=== PATIENT | male | born 1950 | race Hispanic/Latino ===

== ENCOUNTER 2023-01-03 14:10 | Inpatient (IN) | payer OTHER ==
[2023-01-03 15:04] LABS: #Basophils 0.1 10x3/uL (0.0-0.2); #Monocytes 1.6 10x3/uL (0.0-1.1); #Neutrophils 16.1 10x3/uL (1.5-8.4); %Basophils 0.3 % (0.0-2.0); %Eosinophils 0.1 % (0.0-6.0); %Monocytes 7.8 % (0.0-10.0); %Neutrophils 81.1 % (40.0-75.0); Hematocrit 39.4 % (38.8-50.0); Hemoglobin 13.3 g/dL (13.5-17.5); Mean Corpuscular HGB CONC 33.8 g/dL (32.0-36.0); Mean Corpuscular Hemoglobin 28.7 pg (27.0-33.0); Mean Corpuscular Volume 84.9 fl (81.2-95.1); Platelet Count 206 10x3/uL (150-450); RBC Distribution Width 14.7 % (11.5-14.5); Red Blood Cell (RBC) Count 4.64 10x6/uL (4.32-5.72); White Blood Cell (WBC) Count 19.9 10x3/uL (3.5-10.5)
[2023-01-03 15:08] LABS: ALT (SGPT) 13 U/L (8-55); AST (SGOT) 24 U/L (5-34); Albumin 3.8 g/dL (3.4-4.8); Alkaline Phosphatase 94 U/L (40-110); Anion Gap 17 mmol/L (10-20); BUN (Urea Nitrogen) 12 mg/dL (8.4-25.7); Bilirubin, Total 1.3 mg/dL (0.2-1.2); Calc. Creatinine Clearance 0 mL/min (70-130); Calcium 8.7 mg/dL (7.8-10.44); Carbon Dioxide 21 mmol/L (23-31); Chloride 100 mmol/L (98-107); Estimated GFR 93; Globulin 3.4 g/dL (2.4-3.5); Glucose 211 mg/dL (80-115); Potassium 3.5 mmol/L (3.5-5.1); Protein, Total 7.2 g/dL (5.8-8.1); Sodium 134 mmol/L (136-145)
[2023-01-03 15:12] LABS: SARS-CoV-2 NAA Rapid Test Not Detected (NotDetected)
[2023-01-03 15:14] LABS: Troponin I 0.035 ng/mL (< 0.028)
[2023-01-03 15:22] LABS: Lipase Less than 4 U/L (8-78)
[2023-01-03] MEDS ORDERED: Morphine 4 MG/ML VIAL ONE (15:35)
[2023-01-03] MEDS ORDERED: Ondansetron PF 4 MG/2 ML Vial ONE (15:35)
[2023-01-03 15:45] LABS: Magnesium 1.8 mg/dL (1.6-2.6)
[2023-01-03] MEDS ORDERED: cefTRIAXone (ROCEPHIN) 2 GM VIAL ONE (16:55)
[2023-01-03 17:32] LABS: Bilirubin Neg (Negative); Blood, Urine 25 (Negative); Clarity Clear (Clear); Glucose, Urine (Dipstick) 100 mg/dL (Negative); Ketone, Urine 5 mg/dL (Negative); Leukocyte Negative (Negative); Nitrite Negative (Negative); Protein, Urine (Dipstick) 30 mg/dl (Neg-Trace); Specific Gravity, Urine 1.015 (1.005-1.030)
[2023-01-03 17:42] LABS: CAUTI Indications for Culture Dysuria,urgency,freq; RBC/HPF 0-3 HPF (0-3); Renal Epithelial 0-3 HPF (None Seen); Squamous Epithelial None Seen HPF (0-3); WBC/HPF 0-3 HPF (0-3)
[2023-01-03 17:43] LABS: Bacteria/HPF Rare-Few HPF (None Seen)
[2023-01-03 17:46] LABS: Urine Culture Reflex No No
[2023-01-03] MEDS ORDERED: diphenhydrAMINE 50 MG/ML VIAL ONE (18:18)
[2023-01-03] MEDS ORDERED: Famotidine/PF 20 mg/2ml Vial ONE (18:19)
[2023-01-03] MEDS ORDERED: methylPREDNISolone Sod Succ 40 MG VIAL ONE (18:19)
[2023-01-03 21:54] LABS: Troponin I 0.043 ng/mL (< 0.028)
[2023-01-03] MEDS ORDERED: Aspirin Chewable 81 MG TAB ONE (21:58)
[2023-01-03] MEDS ORDERED: Dextrose 50% Abboject 50 ML SYRINGE SLOW IVP PRN (22:47)
[2023-01-03] MEDS ORDERED: Glucagon 1 MG/ML KIT IM PRN (22:47)
[2023-01-03] MEDS ORDERED: Dextrose 5% in Water 1,000 ML IV PRN (22:47)
[2023-01-03] MEDS ORDERED: HumaLOG 300 UNITS/3 ML VIAL SC PRN (22:47)
[2023-01-03] MEDS ORDERED: Ondansetron ODT 4 MG TAB PO PRN (22:47)
[2023-01-03] MEDS ORDERED: Metoprolol Tartrate 5 MG/5 ML VIAL IVP SCH (23:00)
[2023-01-03] MEDS ORDERED: Nitroglycerin 2% Ointment 1 INCH/1 GM Packet TOP SCH (23:30)
[2023-01-03 23:43] LABS: Magnesium 1.9 mg/dL (1.6-2.6)
[2023-01-03 23:45] VITALS: BMI 36.5
[2023-01-03] MEDS: NS 0.9% w/ 20 MEQ KCL 1,000 ML/1,000 ML BAG IV SCH (23:56)
[2023-01-04 00:48] LABS: Troponin I 0.037 ng/mL (< 0.028)
[2023-01-04 04:15] LABS: Anion Gap 14 mmol/L (10-20); BUN (Urea Nitrogen) 12 mg/dL (8.4-25.7); Calc. Creatinine Clearance 136 mL/min (70-130); Calcium 9.2 mg/dL (7.8-10.44); Carbon Dioxide 22 mmol/L (23-31); Chloride 103 mmol/L (98-107); Estimated GFR 96; Glucose 243 mg/dL (80-115); Potassium 3.6 mmol/L (3.5-5.1); Sodium 135 mmol/L (136-145)
[2023-01-04 04:22] LABS: Hematocrit 40.8 % (38.8-50.0); Hemoglobin 13.7 g/dL (13.5-17.5); Mean Corpuscular HGB CONC 33.6 g/dL (32.0-36.0); Mean Corpuscular Hemoglobin 28.8 pg (27.0-33.0); Mean Corpuscular Volume 85.9 fl (81.2-95.1); Mean Platelet Volume 10.5 fl (7.4-10.4); Platelet Count 210 10x3/uL (150-450); RBC Distribution Width 14.6 % (11.5-14.5); Red Blood Cell (RBC) Count 4.75 10x6/uL (4.32-5.72); White Blood Cell (WBC) Count 14.1 10x3/uL (3.5-10.5)
[2023-01-04 05:41] LABS: MDiff Complete? YES
[2023-01-04] MEDS ORDERED: Dextrose 50% Abboject 50 ML SYRINGE SLOW IVP PRN (05:47)
[2023-01-04] MEDS ORDERED: Dextrose 5% in Water 1,000 ML IV PRN (05:47)
[2023-01-04] MEDS ORDERED: Glucagon 1 MG/ML KIT IM PRN (05:47)
[2023-01-04 05:57] LABS: Band 8 % (5-11); Lymphocytes 8 % (21-51); Monocytes 2 % (0-10); Neutrophil 82 % (42-75); Platelet Adequacy Comment Appears Adequate; RBC Morph Comment Within Normal Limits
[2023-01-04] MEDS: Nitroglycerin 2% Ointment 1 INCH/1 GM Packet TOP SCH ×3 (06:40→22:29)
[2023-01-04] MEDS: Metoprolol Tartrate 5 MG/5 ML VIAL IVP SCH ×2 (06:40→14:46)
[2023-01-04] MEDS: HumaLOG 300 UNITS/3 ML VIAL SC PRN ×4 (06:42→20:40)
[2023-01-04] MEDS ORDERED: FLU VACC QS2023(65UP)/MF59C/PF 60 MCG/0.5 ML SYRINGE IM ONE (09:00)
[2023-01-04] MEDS: NS 0.9% w/ 20 MEQ KCL 1,000 ML/1,000 ML BAG IV SCH ×2 (10:56→20:40)
[2023-01-04] MEDS: Aspirin 300 MG Suppository PR SCH (10:57)
[2023-01-04] MEDS: Lantus 1000 UNITS/10 ML VIAL SC SCH ×2 (11:15→20:41)
[2023-01-04] MEDS ORDERED: fentaNYL 50 mcg/mL 1 mL Vial ONE ×2 (15:18→16:20)
[2023-01-04] MEDS ORDERED: PROPOFOL 20 ML ONE ×2 (15:18→16:01)
[2023-01-04] MEDS ORDERED: Lidocaine 1% PF 5 ML VIAL ONE (15:18)
[2023-01-04] MEDS ORDERED: Rocuronium Bromide 10 MG/ML (10ML VIAL) ONE (15:18)
[2023-01-04] MEDS ORDERED: SUGAMMADEX SODIUM 200 MG/2 ML VIAL ONE (15:29)
[2023-01-04] MEDS ORDERED: Piperacillin/Tazobactam 3.375 GM in Sodium Chloride 0.9% 100 ML IVPB SCH (16:00)
[2023-01-04] MEDS ORDERED: Labetalol HCl 100 MG/20 ML VIAL ONE (16:29)
[2023-01-04] MEDS ORDERED: Bupivacaine HCl 0.5%/Epinephrine 1:200,000/PF 30 ml Vial ONE (16:33)
[2023-01-04] MEDS ORDERED: Ondansetron PF 4 MG/2 ML Vial ONE (16:42)
[2023-01-04] MEDS ORDERED: cefTRIAXone\\ROCEPHIN 2 GM in Sodium Chloride 0.9% 100 ML IVPB SCH (17:00)
[2023-01-04] MEDS ORDERED: Dexamethasone 4 mg/ml Vial ONE (17:05)
[2023-01-04] MEDS ORDERED: Ketorolac Tromethamine 30 MG/ML VIAL ONE (17:05)
[2023-01-04] MEDS ORDERED: Morphine 2 MG/ML VIAL SLOW IVP PRN (18:27)
[2023-01-04] MEDS: Piperacillin/Tazobactam 3.375 GM in Sodium Chloride 0.9% 100 ML IVPB SCH (20:22)
[2023-01-04] MEDS: Morphine 4 MG/ML VIAL SLOW IVP PRN (20:22)
[2023-01-05] MEDS: Morphine 4 MG/ML VIAL SLOW IVP PRN ×3 (00:48→14:49)
[2023-01-05] MEDS: Piperacillin/Tazobactam 3.375 GM in Sodium Chloride 0.9% 100 ML IVPB SCH ×3 (04:02→20:33)
[2023-01-05] MEDS: Nitroglycerin 2% Ointment 1 INCH/1 GM Packet TOP SCH ×3 (06:48→21:20)
[2023-01-05] MEDS: HumaLOG 300 UNITS/3 ML VIAL SC PRN ×2 (06:54→17:40)
[2023-01-05] MEDS ORDERED: Insulin NPH Human Isophane 100 UNITS/ML (10 ML VIAL) SQ SCH ×2 (09:00→21:00)
[2023-01-05] MEDS: Aspirin 300 MG Suppository PR SCH (09:41)
[2023-01-05] MEDS: Isosorbide Mononitrate 60 MG ER.TAB PO SCH (09:41)
[2023-01-05] MEDS: Lantus 1000 UNITS/10 ML VIAL SC SCH ×2 (09:42→20:35)
[2023-01-05] MEDS: Lisinopril 20 MG TAB PO SCH (09:42)
[2023-01-05] MEDS ORDERED: Aspirin 81 mg Enteric Coated Tablet PO SCH (10:00)
[2023-01-05] MEDS: NS 0.9% w/ 20 MEQ KCL 1,000 ML/1,000 ML BAG IV SCH (10:27)
[2023-01-05 11:55] LABS: Anion Gap 12 mmol/L (10-20); BUN (Urea Nitrogen) 17 mg/dL (8.4-25.7); Calc. Creatinine Clearance 134 mL/min (70-130); Calcium 8.9 mg/dL (7.8-10.44); Carbon Dioxide 23 mmol/L (23-31); Chloride 110 mmol/L (98-107); Estimated GFR 96; Glucose 249 mg/dL (80-115); Potassium 4.1 mmol/L (3.5-5.1); Sodium 141 mmol/L (136-145)
[2023-01-05] MEDS: metFORMIN 500 MG TAB PO SCH (17:32)
[2023-01-05] MEDS: Atorvastatin Calcium 10 MG TAB PO SCH (20:32)
[2023-01-05] MEDS: Terazosin HCl 5 MG CAP PO SCH (20:32)
[2023-01-05] MEDS: Latanoprost 0.005% Ophth Soln 2.5 ml Bottle EA EYE SCH (20:37)
[2023-01-05] MEDS ORDERED: Lantus 1000 UNITS/10 ML VIAL SC SCH (21:00)
[2023-01-05] MEDS: Insulin NPH Human Isophane 100 UNITS/ML (10 ML VIAL) SQ SCH (21:04)
[2023-01-06] MEDS: Morphine 4 MG/ML VIAL SLOW IVP PRN ×2 (00:31→04:32)
[2023-01-06] MEDS: NS 0.9% w/ 20 MEQ KCL 1,000 ML/1,000 ML BAG IV SCH ×3 (01:54→18:03)
[2023-01-06] MEDS: Piperacillin/Tazobactam 3.375 GM in Sodium Chloride 0.9% 100 ML IVPB SCH ×3 (04:33→21:12)
[2023-01-06] MEDS: Levothyroxine 150 MCG TAB PO SCH (06:24)
[2023-01-06 08:41] LABS: #Eosinphils 0.1 10x3/uL (0.0-0.5); #Monocytes 0.6 10x3/uL (0.0-1.1); %Basophils 0.6 % (0.0-2.0); %Eosinophils 2.1 % (0.0-6.0); %Lymphocytes 23.2 % (18.0-47.0); %Neutrophils 63.5 % (40.0-75.0); Hematocrit 36.5 % (38.8-50.0); Hemoglobin 11.5 g/dL (13.5-17.5); Mean Corpuscular HGB CONC 31.5 g/dL (32.0-36.0); Mean Platelet Volume 10.2 fl (7.4-10.4); Platelet Count 221 10x3/uL (150-450); RBC Distribution Width 15.7 % (11.5-14.5); White Blood Cell (WBC) Count 6.3 10x3/uL (3.5-10.5)
[2023-01-06 08:42] LABS: ALT (SGPT) 25 U/L (8-55); AST (SGOT) 33 U/L (5-34); Alkaline Phosphatase 78 U/L (40-110); Anion Gap 12 mmol/L (10-20); BUN (Urea Nitrogen) 11 mg/dL (8.4-25.7); Bilirubin, Total 0.5 mg/dL (0.2-1.2); Calc. Creatinine Clearance 151 mL/min (70-130); Calcium 8.2 mg/dL (7.8-10.44); Carbon Dioxide 23 mmol/L (23-31); Chloride 113 mmol/L (98-107); Estimated GFR 99; Globulin 3.3 g/dL (2.4-3.5); Glucose 83 mg/dL (80-115); Potassium 3.8 mmol/L (3.5-5.1); Protein, Total 6.3 g/dL (5.8-8.1); Sodium 144 mmol/L (136-145)
[2023-01-06] MEDS ORDERED: Lantus 1000 UNITS/10 ML VIAL SC SCH (09:00)
[2023-01-06] MEDS: metFORMIN 500 MG TAB PO SCH ×2 (10:01→18:02)
[2023-01-06] MEDS: Isosorbide Mononitrate 60 MG ER.TAB PO SCH (10:02)
[2023-01-06] MEDS: Lisinopril 20 MG TAB PO SCH (10:02)
[2023-01-06] MEDS: Aspirin 81 mg Enteric Coated Tablet PO SCH (10:02)
[2023-01-06] MEDS: Insulin NPH Human Isophane 100 UNITS/ML (10 ML VIAL) SQ SCH ×2 (10:03→21:14)
[2023-01-06] MEDS: Atorvastatin Calcium 10 MG TAB PO SCH (21:13)
[2023-01-06] MEDS: Latanoprost 0.005% Ophth Soln 2.5 ml Bottle EA EYE SCH (21:13)
[2023-01-06] MEDS: Terazosin HCl 5 MG CAP PO SCH (21:14)
[2023-01-06] MEDS: Calcium Carbonate 500 MG ChewTAB PO PRN (21:52)
[2023-01-07] MEDS: NS 0.9% w/ 20 MEQ KCL 1,000 ML/1,000 ML BAG IV SCH ×2 (03:45→14:19)
[2023-01-07] MEDS: Piperacillin/Tazobactam 3.375 GM in Sodium Chloride 0.9% 100 ML IVPB SCH ×3 (03:45→20:28)
[2023-01-07] MEDS: Levothyroxine 150 MCG TAB PO SCH (05:21)
[2023-01-07] MEDS: metFORMIN 500 MG TAB PO SCH ×2 (08:41→17:43)
[2023-01-07] MEDS: Isosorbide Mononitrate 60 MG ER.TAB PO SCH (08:41)
[2023-01-07] MEDS: Aspirin 81 mg Enteric Coated Tablet PO SCH (08:41)
[2023-01-07] MEDS: Lisinopril 20 MG TAB PO SCH (08:41)
[2023-01-07] MEDS: Morphine 4 MG/ML VIAL SLOW IVP PRN (08:46)
[2023-01-07] MEDS: Insulin NPH Human Isophane 100 UNITS/ML (10 ML VIAL) SQ SCH ×2 (08:47→20:31)
[2023-01-07 12:48] LABS: #Eosinphils 0.1 10x3/uL (0.0-0.5); #Monocytes 0.5 10x3/uL (0.0-1.1); #Neutrophils 5.2 10x3/uL (1.5-8.4); %Basophils 0.3 % (0.0-2.0); %Eosinophils 1.8 % (0.0-6.0); %Lymphocytes 16.3 % (18.0-47.0); %Monocytes 6.9 % (0.0-10.0); Hematocrit 33.8 % (38.8-50.0); Hemoglobin 11.1 g/dL (13.5-17.5); Mean Corpuscular HGB CONC 32.8 g/dL (32.0-36.0); Mean Corpuscular Volume 88.3 fl (81.2-95.1); Mean Platelet Volume 10.2 fl (7.4-10.4); Platelet Count 253 10x3/uL (150-450); RBC Distribution Width 15.5 % (11.5-14.5); Red Blood Cell (RBC) Count 3.83 10x6/uL (4.32-5.72); White Blood Cell (WBC) Count 7.1 10x3/uL (3.5-10.5)
[2023-01-07] MEDS: cloNIDine 0.1 MG TAB PO PRN ×2 (14:18→23:27)
[2023-01-07] MEDS ORDERED: Acetaminophen 650 MG/20.3 ML UDCUP PO PRN (16:47)
[2023-01-07] MEDS ORDERED: Acetaminophen 650 MG/20.3 ML UDCUP PO SCH (17:00)
[2023-01-07] MEDS: Atorvastatin Calcium 10 MG TAB PO SCH (20:30)
[2023-01-07] MEDS: Terazosin HCl 5 MG CAP PO SCH (20:30)
[2023-01-07] MEDS: Latanoprost 0.005% Ophth Soln 2.5 ml Bottle EA EYE SCH (20:32)
[2023-01-07] MEDS: Calcium Carbonate 500 MG ChewTAB PO PRN (20:55)
[2023-01-07] MEDS: Ondansetron PF 4 MG/2 ML Vial IVP PRN (23:14)
[2023-01-08] MEDS: Piperacillin/Tazobactam 3.375 GM in Sodium Chloride 0.9% 100 ML IVPB SCH ×3 (05:12→19:59)
[2023-01-08] MEDS: Levothyroxine 150 MCG TAB PO SCH (05:12)
[2023-01-08] MEDS: Lisinopril 20 MG TAB PO SCH (07:59)
[2023-01-08] MEDS: Aspirin 81 mg Enteric Coated Tablet PO SCH (07:59)
[2023-01-08] MEDS: metFORMIN 500 MG TAB PO SCH ×2 (08:00→17:10)
[2023-01-08] MEDS: Ondansetron PF 4 MG/2 ML Vial IVP PRN ×2 (08:00→20:00)
[2023-01-08] MEDS: Isosorbide Mononitrate 60 MG ER.TAB PO SCH (08:00)
[2023-01-08] MEDS: Morphine 4 MG/ML VIAL SLOW IVP PRN ×2 (08:00→22:18)
[2023-01-08] MEDS: Insulin NPH Human Isophane 100 UNITS/ML (10 ML VIAL) SQ SCH ×2 (08:00→21:51)
[2023-01-08] MEDS: NS 0.9% w/ 20 MEQ KCL 1,000 ML/1,000 ML BAG IV SCH ×3 (08:01→18:03)
[2023-01-08] MEDS: cloNIDine 0.1 MG TAB PO PRN (12:36)
[2023-01-08] MEDS: HumaLOG 300 UNITS/3 ML VIAL SC PRN ×3 (12:37→21:52)
[2023-01-08 12:47] LABS: Bilirubin Neg (Negative); Blood, Urine 250 (Negative); Clarity Slightly Cloudy (Clear); Glucose, Urine (Dipstick) Normal (Negative); Ketone, Urine 5 mg/dL (Negative); Leukocyte 500 (Negative); Nitrite Negative (Negative); Protein, Urine (Dipstick) 15 mg/dl (Neg-Trace); Urobilinogen Normal mg/dL (Less than 2); pH, Urine 6.5 (5.0-9.0)
[2023-01-08 13:07] LABS: CAUTI Indications for Culture Dysuria,urgency,freq; RBC/HPF Greater than 50 HPF (0-3); Squamous Epithelial 0-3 HPF (0-3)
[2023-01-08 13:08] LABS: Bacteria/HPF None Seen HPF (None Seen)
[2023-01-08 13:09] LABS: Urine Culture Reflex Yes Yes
[2023-01-08] MEDS: Terazosin HCl 5 MG CAP PO SCH (21:50)
[2023-01-08] MEDS: Latanoprost 0.005% Ophth Soln 2.5 ml Bottle EA EYE SCH (21:51)
[2023-01-08] MEDS: Atorvastatin Calcium 10 MG TAB PO SCH (21:51)
[2023-01-08] MEDS: Calcium Carbonate 500 MG ChewTAB PO PRN (22:02)
[2023-01-09] MEDS: Piperacillin/Tazobactam 3.375 GM in Sodium Chloride 0.9% 100 ML IVPB SCH ×3 (03:50→20:15)
[2023-01-09] MEDS: cloNIDine 0.1 MG TAB PO PRN ×3 (04:55→20:16)
[2023-01-09] MEDS: Levothyroxine 150 MCG TAB PO SCH (05:08)
[2023-01-09 08:04] LABS: Hemoglobin 11.2 g/dL (13.5-17.5); Mean Corpuscular Hemoglobin 28.5 pg (27.0-33.0); Mean Corpuscular Volume 89.1 fl (81.2-95.1); Mean Platelet Volume 11.1 fl (7.4-10.4); Platelet Count 266 10x3/uL (150-450); RBC Distribution Width 15.4 % (11.5-14.5); Red Blood Cell (RBC) Count 3.93 10x6/uL (4.32-5.72); White Blood Cell (WBC) Count 8.4 10x3/uL (3.5-10.5)
[2023-01-09 08:22] LABS: Anion Gap 13 mmol/L (10-20); BUN (Urea Nitrogen) 8 mg/dL (8.4-25.7); Calc. Creatinine Clearance 151 mL/min (70-130); Calcium 8.3 mg/dL (7.8-10.44); Carbon Dioxide 21 mmol/L (23-31); Chloride 109 mmol/L (98-107); Estimated GFR 99; Glucose 112 mg/dL (80-115); Potassium 4.1 mmol/L (3.5-5.1); Sodium 139 mmol/L (136-145)
[2023-01-09] MEDS: Isosorbide Mononitrate 60 MG ER.TAB PO SCH (08:41)
[2023-01-09] MEDS: Amlodipine 5 MG TAB PO SCH (08:41)
[2023-01-09] MEDS: Lisinopril 20 MG TAB PO SCH (08:41)
[2023-01-09] MEDS: Aspirin 81 mg Enteric Coated Tablet PO SCH (08:41)
[2023-01-09] MEDS: metFORMIN 500 MG TAB PO SCH ×2 (08:41→16:58)
[2023-01-09] MEDS: NS 0.9% w/ 20 MEQ KCL 1,000 ML/1,000 ML BAG IV SCH ×2 (08:42→17:06)
[2023-01-09] MEDS: Insulin NPH Human Isophane 100 UNITS/ML (10 ML VIAL) SQ SCH ×2 (08:42→20:16)
[2023-01-09] MEDS: Morphine 4 MG/ML VIAL SLOW IVP PRN (16:58)
[2023-01-09] MEDS: Ondansetron PF 4 MG/2 ML Vial IVP PRN (16:58)
[2023-01-09] MEDS: Terazosin HCl 5 MG CAP PO SCH (20:15)
[2023-01-09] MEDS: Latanoprost 0.005% Ophth Soln 2.5 ml Bottle EA EYE SCH (20:16)
[2023-01-09] MEDS: Atorvastatin Calcium 10 MG TAB PO SCH (20:18)
[2023-01-09] MEDS: HumaLOG 300 UNITS/3 ML VIAL SC PRN (20:18)
[2023-01-09] MEDS: Calcium Carbonate 500 MG ChewTAB PO PRN (20:25)
[2023-01-10] MEDS: Piperacillin/Tazobactam 3.375 GM in Sodium Chloride 0.9% 100 ML IVPB SCH ×2 (03:56→11:25)
[2023-01-10] MEDS: NS 0.9% w/ 20 MEQ KCL 1,000 ML/1,000 ML BAG IV SCH ×2 (03:58→14:41)
[2023-01-10] MEDS: Levothyroxine 150 MCG TAB PO SCH (06:35)
[2023-01-10] MEDS: metFORMIN 500 MG TAB PO SCH ×2 (09:10→18:01)
[2023-01-10] MEDS: Lisinopril 20 MG TAB PO SCH (09:10)
[2023-01-10] MEDS: Aspirin 81 mg Enteric Coated Tablet PO SCH (09:11)
[2023-01-10] MEDS: Amlodipine 5 MG TAB PO SCH (09:11)
[2023-01-10] MEDS: Isosorbide Mononitrate 60 MG ER.TAB PO SCH (09:11)
[2023-01-10] MEDS: Insulin NPH Human Isophane 100 UNITS/ML (10 ML VIAL) SQ SCH ×2 (09:12→21:44)
[2023-01-10] MEDS: Atorvastatin Calcium 10 MG TAB PO SCH (21:43)
[2023-01-10] MEDS: Latanoprost 0.005% Ophth Soln 2.5 ml Bottle EA EYE SCH (21:43)
[2023-01-10] MEDS: Terazosin HCl 5 MG CAP PO SCH (21:43)
[2023-01-10] MEDS: Morphine 4 MG/ML VIAL SLOW IVP PRN (21:44)
[2023-01-11] MEDS: cloNIDine 0.1 MG TAB PO PRN (05:05)
[2023-01-11] MEDS: Levothyroxine 150 MCG TAB PO SCH (05:05)
[2023-01-11] MEDS: Isosorbide Mononitrate 60 MG ER.TAB PO SCH (08:32)
[2023-01-11] MEDS: Lisinopril 20 MG TAB PO SCH (08:32)
[2023-01-11] MEDS: Amlodipine 5 MG TAB PO SCH (08:32)
[2023-01-11] MEDS: Aspirin 81 mg Enteric Coated Tablet PO SCH (08:32)
[2023-01-11] MEDS: metFORMIN 500 MG TAB PO SCH (08:32)
[2023-01-11] MEDS: Insulin NPH Human Isophane 100 UNITS/ML (10 ML VIAL) SQ SCH (08:33)
[2023-01-11 12:48] VITALS: BP 136/66; TEMP 98.6
== END 2023-01-11 16:27 | DRG 417 ==
LOC: CSHERS 14:10 → EEVIPCON 14:10 → CSHTELE 23:39
PROVIDERS: ADMIT Family Medicine; ATTEND Internal Medicine
PROC: 0FT44ZZ Resection of Gallbladder, Percutaneous Endoscopic Approach (ICD-10-PCS; principal; 2023-01-04)
DX: K81.0 Acute cholecystitis (principal); I21.A1 Myocardial infarction type 2; E87.1 Hypo-osmolality and hyponatremia; E03.9 Hypothyroidism, unspecified; E78.5 Hyperlipidemia, unspecified; E11.40 Type 2 diabetes mellitus with diabetic neuropathy, unspecified; I10 Essential (primary) hypertension; I25.10 Atherosclerotic heart disease of native coronary artery without angina pectoris; Z95.5 Presence of coronary angioplasty implant and graft; Z98.890 Other specified postprocedural states; Z90.89 Acquired absence of other organs; Z83.3 Family history of diabetes mellitus; Z79.899 Other long term (current) drug therapy; Z79.890 Hormone replacement therapy; Z91.041 Radiographic dye allergy status; Z79.84 Long term (current) use of oral hypoglycemic drugs; Z79.4 Long term (current) use of insulin; Z86.73 Personal history of transient ischemic attack (TIA), and cerebral infarction without residual deficits; Z20.822 Contact with and (suspected) exposure to COVID-19
CPT/HCPCS: 36415; 36416; 51702; 70450; 71045; 74177; 76705; 80048; 80053; 81001; 83605; 83690; 83735; 84484; 85025; 85027; 87040; 87086; 88304; 90471; 90694; 93005; 93010; 93306; 94760; 94762; 96361; 96365; 96375; C1889; G0008; J0696; J1100; J1200; J1650; J1815; J1885; J2270; J2405; J2543; J2704; J2920; J3010; J3480; J3490; S0028; U0002

== ENCOUNTER 2023-02-26 16:52 | Inpatient (IN) | payer OTHER ==
[2023-02-26 17:09] VITALS: BMI 34.3
[2023-02-26] MEDS ORDERED: Senokot S 8.6-50 MG TAB PO PRN (19:32)
[2023-02-26] MEDS ORDERED: Nitroglycerin 0.4 MG TAB (25 Tab Bottle) SL PRN (19:45)
[2023-02-26 20:22] LABS: Magnesium 1.3 mg/dL (1.6-2.6)
[2023-02-26 20:28] LABS: Troponin I 0.044 ng/mL (< 0.028)
[2023-02-26] MEDS: Terazosin HCl 5 MG CAP PO SCH (21:21)
[2023-02-26] MEDS: carBAMazepine 200 MG TAB PO SCH (21:21)
[2023-02-26] MEDS: Potassium Chloride 20 MEQ TAB PO SCH (21:21)
[2023-02-26] MEDS: Furosemide 20 MG TAB PO SCH (21:22)
[2023-02-26] MEDS: Insulin NPH Human Isophane 100 UNITS/ML (10 ML VIAL) SQ SCH (21:23)
[2023-02-26] MEDS: Latanoprost 0.005% Ophth Soln 2.5 ml Bottle EA EYE SCH (21:34)
[2023-02-26 22:55] LABS: Troponin I 0.048 ng/mL (< 0.028)
[2023-02-27] MEDS: Potassium Chloride 20 MEQ TAB PO SCH ×3 (00:19→21:45)
[2023-02-27] MEDS ORDERED: Magnesium Oxide 400 MG TAB PO SCH ×2 (03:45→09:00)
[2023-02-27 03:59] LABS: #Basophils 0.1 10x3/uL (0.0-0.2); #Eosinphils 0.1 10x3/uL (0.0-0.5); #Monocytes 0.6 10x3/uL (0.0-1.1); #Neutrophils 3.5 10x3/uL (1.5-8.4); %Basophils 1.2 % (0.0-2.0); %Eosinophils 1.7 % (0.0-6.0); %Lymphocytes 27.6 % (18.0-47.0); %Monocytes 9.4 % (0.0-10.0); %Neutrophils 59.8 % (40.0-75.0); Hematocrit 38.9 % (38.8-50.0); Hemoglobin 12.9 g/dL (13.5-17.5); Mean Corpuscular HGB CONC 33.2 g/dL (32.0-36.0); Mean Corpuscular Hemoglobin 28.2 pg (27.0-33.0); Mean Corpuscular Volume 85.1 fl (81.2-95.1); Mean Platelet Volume 9.9 fl (7.4-10.4); Platelet Count 220 10x3/uL (150-450); RBC Distribution Width 15.1 % (11.5-14.5); Red Blood Cell (RBC) Count 4.57 10x6/uL (4.32-5.72); White Blood Cell (WBC) Count 5.9 10x3/uL (3.5-10.5)
[2023-02-27 04:14] LABS: Anion Gap 13 mmol/L (10-20); BUN (Urea Nitrogen) 7 mg/dL (8.4-25.7); Calc. Creatinine Clearance 142 mL/min (70-130); Calcium 8.8 mg/dL (7.8-10.44); Carbon Dioxide 26 mmol/L (23-31); Cardiac Risk 3.2 (Less than 4.5); Chloride 105 mmol/L (98-107); Cholesterol 167 mg/dl (< 200 Desired); Estimated GFR 99; Glucose 134 mg/dL (80-115); HDL Cholesterol 52 mg/dL (>60 Neg Risk); LDL Cholesterol, Calculated 97 mg/dL; Potassium 3.3 mmol/L (3.5-5.1); Sodium 141 mmol/L (136-145); Triglycerides 88 mg/dL (Less than 150)
[2023-02-27] MEDS: Levothyroxine Sodium 100 MCG TAB PO SCH (06:24)
[2023-02-27] MEDS: Isosorbide Mononitrate 60 MG ER.TAB PO SCH (09:16)
[2023-02-27] MEDS: Furosemide 20 MG TAB PO SCH ×2 (09:16→21:42)
[2023-02-27] MEDS: Amlodipine 5 MG TAB PO SCH (09:16)
[2023-02-27] MEDS: Aspirin 81 mg Enteric Coated Tablet PO SCH ×2 (09:16→09:17)
[2023-02-27] MEDS: Lisinopril 20 MG TAB PO SCH (09:16)
[2023-02-27] MEDS: Clopidogrel Bisulfate 75 MG TAB PO SCH (09:17)
[2023-02-27] MEDS: carBAMazepine 200 MG TAB PO SCH ×2 (09:17→21:44)
[2023-02-27] MEDS: Calcium Carbonate 500 MG TAB PO SCH (09:17)
[2023-02-27] MEDS: Insulin NPH Human Isophane 100 UNITS/ML (10 ML VIAL) SQ SCH ×2 (09:18→21:46)
[2023-02-27] MEDS: metFORMIN 500 MG TAB PO SCH ×2 (09:31→16:45)
[2023-02-27] MEDS: Magnesium 2 GM/50 ML(in water) 2 GM in Premix 1 BAG IVPB SCH ×2 (11:09→12:11)
[2023-02-27 11:57] LABS: Bilirubin Neg (Negative); Blood, Urine Negative (Negative); Clarity Clear (Clear); Glucose, Urine (Dipstick) Normal (Negative); Ketone, Urine Negative (Negative); Leukocyte Negative (Negative); Nitrite Negative (Negative); Protein, Urine (Dipstick) Negative (Neg-Trace); Specific Gravity, Urine 1.005 (1.005-1.030); Urobilinogen Normal mg/dL (Less than 2)
[2023-02-27 12:27] LABS: Bacteria/HPF None Seen HPF (None Seen); CAUTI Indications for Culture Pelvic or flank pain; RBC/HPF None Seen HPF (0-3); Squamous Epithelial 0-3 HPF (0-3); WBC/HPF None Seen HPF (0-3)
[2023-02-27 12:28] LABS: Urine Culture Reflex No No
[2023-02-27 12:36] LABS: Hemoglobin A1c 8.2 % (4.0-6.0)
[2023-02-27] MEDS ORDERED: Dextrose 5% in Water 1,000 ML IV PRN (17:30)
[2023-02-27] MEDS ORDERED: Dextrose 50% Abboject 50 ML SYRINGE IVP PRN (17:30)
[2023-02-27] MEDS ORDERED: Glucagon 1 MG/ML KIT IM PRN (17:30)
[2023-02-27] MEDS: Terazosin HCl 5 MG CAP PO SCH (21:44)
[2023-02-27] MEDS: HumaLOG 300 UNITS/3 ML VIAL SC PRN (21:47)
[2023-02-27] MEDS: Latanoprost 0.005% Ophth Soln 2.5 ml Bottle EA EYE SCH (21:48)
[2023-02-28 03:42] LABS: #Eosinphils 0.1 10x3/uL (0.0-0.5); #Monocytes 0.6 10x3/uL (0.0-1.1); #Neutrophils 3.6 10x3/uL (1.5-8.4); %Basophils 0.6 % (0.0-2.0); %Eosinophils 2.3 % (0.0-6.0); %Lymphocytes 28.9 % (18.0-47.0); %Monocytes 9.6 % (0.0-10.0); %Neutrophils 58.4 % (40.0-75.0); Hematocrit 39.6 % (38.8-50.0); Hemoglobin 13.1 g/dL (13.5-17.5); Mean Corpuscular HGB CONC 33.1 g/dL (32.0-36.0); Mean Corpuscular Hemoglobin 28.2 pg (27.0-33.0); Mean Corpuscular Volume 85.2 fl (81.2-95.1); Mean Platelet Volume 9.9 fl (7.4-10.4); Platelet Count 219 10x3/uL (150-450); RBC Distribution Width 15.4 % (11.5-14.5); Red Blood Cell (RBC) Count 4.65 10x6/uL (4.32-5.72); White Blood Cell (WBC) Count 6.2 10x3/uL (3.5-10.5)
[2023-02-28 03:59] LABS: Anion Gap 17 mmol/L (10-20); BUN (Urea Nitrogen) 12 mg/dL (8.4-25.7); Calc. Creatinine Clearance 125 mL/min (70-130); Calcium 9.1 mg/dL (7.8-10.44); Carbon Dioxide 22 mmol/L (23-31); Chloride 103 mmol/L (98-107); Estimated GFR 95; Glucose 100 mg/dL (80-115); Potassium 3.8 mmol/L (3.5-5.1); Sodium 138 mmol/L (136-145)
[2023-02-28] MEDS: Levothyroxine Sodium 100 MCG TAB PO SCH (05:54)
[2023-02-28] MEDS: Furosemide 20 MG TAB PO SCH (09:23)
[2023-02-28] MEDS: Lisinopril 20 MG TAB PO SCH (09:23)
[2023-02-28] MEDS: Amlodipine 5 MG TAB PO SCH (09:23)
[2023-02-28] MEDS: carBAMazepine 200 MG TAB PO SCH (09:23)
[2023-02-28] MEDS: Aspirin 81 mg Enteric Coated Tablet PO SCH ×2 (09:23→09:24)
[2023-02-28] MEDS: Isosorbide Mononitrate 60 MG ER.TAB PO SCH (09:23)
[2023-02-28] MEDS: Clopidogrel Bisulfate 75 MG TAB PO SCH (09:23)
[2023-02-28] MEDS: metFORMIN 500 MG TAB PO SCH ×3 (09:23→17:40)
[2023-02-28] MEDS: Insulin NPH Human Isophane 100 UNITS/ML (10 ML VIAL) SQ SCH (09:24)
[2023-02-28] MEDS: Calcium Carbonate 500 MG TAB PO SCH (09:26)
[2023-02-28] MEDS: HumaLOG 300 UNITS/3 ML VIAL SC PRN (12:22)
[2023-02-28] MEDS: Ondansetron PF 4 MG/2 ML Vial IVP PRN ×2 (12:35→21:09)
[2023-03-01] MEDS ORDERED: carBAMazepine 200 MG TAB PO SCH (00:30)
[2023-03-01] MEDS ORDERED: Terazosin HCl 5 MG CAP PO SCH (00:30)
[2023-03-01] MEDS ORDERED: Latanoprost 0.005% Ophth Soln 2.5 ml Bottle EA EYE SCH (00:30)
[2023-03-01] MEDS ORDERED: Furosemide 20 MG TAB PO SCH (00:30)
[2023-03-01] MEDS: Insulin NPH Human Isophane 100 UNITS/ML (10 ML VIAL) SQ SCH ×3 (01:02→22:29)
[2023-03-01 03:31] LABS: #Monocytes 0.7 10x3/uL (0.0-1.1); #Neutrophils 4.5 10x3/uL (1.5-8.4); %Basophils 0.6 % (0.0-2.0); %Eosinophils 0.6 % (0.0-6.0); %Lymphocytes 22.3 % (18.0-47.0); %Monocytes 9.9 % (0.0-10.0); %Neutrophils 66.5 % (40.0-75.0); Hematocrit 39.4 % (38.8-50.0); Hemoglobin 13.1 g/dL (13.5-17.5); Mean Corpuscular HGB CONC 33.2 g/dL (32.0-36.0); Mean Corpuscular Hemoglobin 28.9 pg (27.0-33.0); Mean Corpuscular Volume 86.8 fl (81.2-95.1); Mean Platelet Volume 10.2 fl (7.4-10.4); Platelet Count 227 10x3/uL (150-450); RBC Distribution Width 15.7 % (11.5-14.5); Red Blood Cell (RBC) Count 4.54 10x6/uL (4.32-5.72); White Blood Cell (WBC) Count 6.7 10x3/uL (3.5-10.5)
[2023-03-01 03:37] LABS: Anion Gap 16 mmol/L (10-20); BUN (Urea Nitrogen) 16 mg/dL (8.4-25.7); Calc. Creatinine Clearance 91 mL/min (70-130); Calcium 9.5 mg/dL (7.8-10.44); Carbon Dioxide 27 mmol/L (23-31); Chloride 102 mmol/L (98-107); Estimated GFR 72; Glucose 201 mg/dL (80-115); Potassium 3.7 mmol/L (3.5-5.1); Sodium 141 mmol/L (136-145)
[2023-03-01] MEDS: Levothyroxine Sodium 100 MCG TAB PO SCH (06:43)
[2023-03-01] MEDS: HumaLOG 300 UNITS/3 ML VIAL SC PRN (06:44)
[2023-03-01] MEDS: Latanoprost 0.005% Ophth Soln 2.5 ml Bottle EA EYE SCH (08:08)
[2023-03-01] MEDS: Terazosin HCl 5 MG CAP PO SCH ×2 (08:08→22:27)
[2023-03-01] MEDS: carBAMazepine 200 MG TAB PO SCH ×3 (08:08→22:28)
[2023-03-01] MEDS: Furosemide 20 MG TAB PO SCH ×3 (08:08→22:28)
[2023-03-01] MEDS: metFORMIN 500 MG TAB PO SCH ×2 (08:23→17:28)
[2023-03-01] MEDS: Isosorbide Mononitrate 60 MG ER.TAB PO SCH (08:24)
[2023-03-01] MEDS: Clopidogrel Bisulfate 75 MG TAB PO SCH (08:24)
[2023-03-01] MEDS: Amlodipine 5 MG TAB PO SCH (08:24)
[2023-03-01] MEDS: Lisinopril 20 MG TAB PO SCH (08:24)
[2023-03-01] MEDS: Calcium Carbonate 500 MG TAB PO SCH (08:24)
[2023-03-01] MEDS: Aspirin 81 mg Enteric Coated Tablet PO SCH ×2 (08:24)
[2023-03-01] MEDS: Ondansetron PF 4 MG/2 ML Vial IVP PRN (08:53)
[2023-03-01] MEDS ORDERED: Prochlorperazine Maleate 10 MG TAB PO PRN (09:06)
[2023-03-01] MEDS ORDERED: Prochlorperazine Edisylate 10 MG, Admixture Fee 1 EACH in Sodium Chloride 0.9% 50 ML IVPB SCH (09:30)
[2023-03-02 04:46] LABS: #Monocytes 0.4 10x3/uL (0.0-1.1); #Neutrophils 5.6 10x3/uL (1.5-8.4); %Basophils 0.3 % (0.0-2.0); %Eosinophils 0.3 % (0.0-6.0); %Lymphocytes 17.6 % (18.0-47.0); %Monocytes 5.7 % (0.0-10.0); %Neutrophils 75.8 % (40.0-75.0); Hematocrit 40.1 % (38.8-50.0); Hemoglobin 13.4 g/dL (13.5-17.5); Mean Corpuscular HGB CONC 33.4 g/dL (32.0-36.0); Mean Corpuscular Volume 86.8 fl (81.2-95.1); Platelet Count 249 10x3/uL (150-450); RBC Distribution Width 15.9 % (11.5-14.5); Red Blood Cell (RBC) Count 4.62 10x6/uL (4.32-5.72); White Blood Cell (WBC) Count 7.3 10x3/uL (3.5-10.5)
[2023-03-02] MEDS: Levothyroxine Sodium 100 MCG TAB PO SCH (06:19)
[2023-03-02] MEDS: Latanoprost 0.005% Ophth Soln 2.5 ml Bottle EA EYE SCH ×2 (06:30→23:56)
[2023-03-02] MEDS: metFORMIN 500 MG TAB PO SCH ×2 (08:00→17:25)
[2023-03-02 08:21] LABS: Anion Gap 22 mmol/L (10-20); BUN (Urea Nitrogen) 22 mg/dL (8.4-25.7); Calc. Creatinine Clearance 86 mL/min (70-130); Carbon Dioxide 23 mmol/L (23-31); Chloride 100 mmol/L (98-107); Estimated GFR 68; Glucose 167 mg/dL (80-115); Potassium 3.8 mmol/L (3.5-5.1); Sodium 141 mmol/L (136-145)
[2023-03-02] MEDS: Insulin NPH Human Isophane 100 UNITS/ML (10 ML VIAL) SQ SCH ×2 (09:24→23:53)
[2023-03-02] MEDS: Lisinopril 20 MG TAB PO SCH (09:37)
[2023-03-02] MEDS: Amlodipine 5 MG TAB PO SCH (09:38)
[2023-03-02] MEDS: Furosemide 20 MG TAB PO SCH ×2 (09:39→23:55)
[2023-03-02] MEDS: Isosorbide Mononitrate 60 MG ER.TAB PO SCH (09:39)
[2023-03-02] MEDS: Aspirin 81 mg Enteric Coated Tablet PO SCH ×2 (09:40)
[2023-03-02] MEDS: Clopidogrel Bisulfate 75 MG TAB PO SCH (09:41)
[2023-03-02] MEDS: carBAMazepine 200 MG TAB PO SCH ×2 (09:41→23:55)
[2023-03-02] MEDS: Calcium Carbonate 500 MG TAB PO SCH (09:54)
[2023-03-02] MEDS ORDERED: Atorvastatin Calcium 40 MG TAB PO SCH (15:30)
[2023-03-02] MEDS: Terazosin HCl 5 MG CAP PO SCH (23:52)
[2023-03-02] MEDS: Atorvastatin Calcium 40 MG TAB PO SCH (23:54)
[2023-03-03 05:35] LABS: #Basophils 0.1 10x3/uL (0.0-0.2); #Eosinphils 0.1 10x3/uL (0.0-0.5); #Neutrophils 6.5 10x3/uL (1.5-8.4); %Basophils 0.6 % (0.0-2.0); %Eosinophils 0.8 % (0.0-6.0); %Lymphocytes 22.9 % (18.0-47.0); %Monocytes 9.8 % (0.0-10.0); %Neutrophils 65.6 % (40.0-75.0); Hematocrit 41.1 % (38.8-50.0); Mean Corpuscular HGB CONC 34.1 g/dL (32.0-36.0); Mean Corpuscular Hemoglobin 29.1 pg (27.0-33.0); Mean Corpuscular Volume 85.4 fl (81.2-95.1); Mean Platelet Volume 10.4 fl (7.4-10.4); Platelet Count 242 10x3/uL (150-450); RBC Distribution Width 15.4 % (11.5-14.5); Red Blood Cell (RBC) Count 4.81 10x6/uL (4.32-5.72)
[2023-03-03 05:52] LABS: Anion Gap 17 mmol/L (10-20); BUN (Urea Nitrogen) 31 mg/dL (8.4-25.7); Calc. Creatinine Clearance 56 mL/min (70-130); Calcium 9.7 mg/dL (7.8-10.44); Carbon Dioxide 29 mmol/L (23-31); Chloride 96 mmol/L (98-107); Estimated GFR 41; Glucose 192 mg/dL (80-115); Potassium 3.3 mmol/L (3.5-5.1); Sodium 139 mmol/L (136-145)
[2023-03-03] MEDS: Levothyroxine Sodium 100 MCG TAB PO SCH (06:13)
[2023-03-03] MEDS: metFORMIN 500 MG TAB PO SCH ×2 (08:32→17:33)
[2023-03-03] MEDS: Lisinopril 20 MG TAB PO SCH (09:00)
[2023-03-03] MEDS: carBAMazepine 200 MG TAB PO SCH ×2 (09:00→21:14)
[2023-03-03] MEDS: Aspirin 81 mg Enteric Coated Tablet PO SCH (09:00)
[2023-03-03] MEDS: Insulin NPH Human Isophane 100 UNITS/ML (10 ML VIAL) SQ SCH ×2 (09:00→21:59)
[2023-03-03] MEDS: Isosorbide Mononitrate 60 MG ER.TAB PO SCH (09:00)
[2023-03-03] MEDS: Amlodipine 5 MG TAB PO SCH (09:00)
[2023-03-03] MEDS: Furosemide 20 MG TAB PO SCH (09:00)
[2023-03-03] MEDS: Calcium Carbonate 500 MG TAB PO SCH (09:00)
[2023-03-03] MEDS: Clopidogrel Bisulfate 75 MG TAB PO SCH (09:00)
[2023-03-03] MEDS ORDERED: Lactated Ringer's 500 ML IV SCH (10:45)
[2023-03-03] MEDS: Lactated Ringer's 1,000 ML IV SCH (10:58)
[2023-03-03] MEDS: Terazosin HCl 5 MG CAP PO SCH (21:14)
[2023-03-03] MEDS: Atorvastatin Calcium 40 MG TAB PO SCH (21:14)
[2023-03-03] MEDS: Latanoprost 0.005% Ophth Soln 2.5 ml Bottle EA EYE SCH (21:58)
[2023-03-04 05:46] LABS: Anion Gap 18 mmol/L (10-20); BUN (Urea Nitrogen) 35 mg/dL (8.4-25.7); Calc. Creatinine Clearance 82 mL/min (70-130); Calcium 9.5 mg/dL (7.8-10.44); Carbon Dioxide 27 mmol/L (23-31); Chloride 98 mmol/L (98-107); Estimated GFR 64; Glucose 172 mg/dL (80-115); Sodium 140 mmol/L (136-145)
[2023-03-04] MEDS: HumaLOG 300 UNITS/3 ML VIAL SC PRN (05:59)
[2023-03-04] MEDS: Levothyroxine Sodium 100 MCG TAB PO SCH (05:59)
[2023-03-04] MEDS: Lactated Ringer's 1,000 ML IV SCH (06:45)
[2023-03-04] MEDS: metFORMIN 500 MG TAB PO SCH ×2 (09:25→17:50)
[2023-03-04] MEDS: Clopidogrel Bisulfate 75 MG TAB PO SCH (09:28)
[2023-03-04] MEDS: Isosorbide Mononitrate 60 MG ER.TAB PO SCH (09:30)
[2023-03-04] MEDS: Aspirin 81 mg Enteric Coated Tablet PO SCH (09:30)
[2023-03-04] MEDS: Amlodipine 5 MG TAB PO SCH (09:30)
[2023-03-04] MEDS: carBAMazepine 200 MG TAB PO SCH (09:31)
[2023-03-04] MEDS: Insulin NPH Human Isophane 100 UNITS/ML (10 ML VIAL) SQ SCH (09:32)
[2023-03-04] MEDS ORDERED: Potassium Chloride 20 MEQ TAB PO SCH (10:45)
[2023-03-04] MEDS: Calcium Carbonate 500 MG TAB PO SCH (17:51)
[2023-03-04 20:41] VITALS: BP 144/81; TEMP 98.8
== END 2023-03-04 22:40 | DRG 69 ==
LOC: CSHTELE 16:52 → INTOOBSV 16:52 → EEVIPCON 16:52 → OBSVTOIN 03-01 09:04 → CSHTELE 03-01 22:25
PROVIDERS: ADMIT Internal Medicine; ATTEND Hospitalist
DX: G45.9 Transient cerebral ischemic attack, unspecified (principal); I21.A1 Myocardial infarction type 2; I69.352 Hemiplegia and hemiparesis following cerebral infarction affecting left dominant side; I42.9 Cardiomyopathy, unspecified; N17.9 Acute kidney failure, unspecified; I10 Essential (primary) hypertension; E11.40 Type 2 diabetes mellitus with diabetic neuropathy, unspecified; I25.10 Atherosclerotic heart disease of native coronary artery without angina pectoris; R33.8 Other retention of urine; R53.1 Weakness; R53.81 Other malaise; K59.00 Constipation, unspecified; N40.1 Benign prostatic hyperplasia with lower urinary tract symptoms; E03.9 Hypothyroidism, unspecified; E78.5 Hyperlipidemia, unspecified; Z88.5 Allergy status to narcotic agent; Z79.899 Other long term (current) drug therapy; Z79.84 Long term (current) use of oral hypoglycemic drugs; Z79.890 Hormone replacement therapy; Z90.49 Acquired absence of other specified parts of digestive tract; Z79.82 Long term (current) use of aspirin; Z90.89 Acquired absence of other organs
CPT/HCPCS: 36415; 36416; 70551; 71045; 74018; 76770; 76775; 80048; 80061; 81001; 82140; 83036; 83735; 84439; 84443; 85025; 93005; 93010; 93880; J0780; J1650; J1815; J2405; J3475; J7120

== ENCOUNTER 2024-12-28 16:25 | Emergency (ER) | payer OTHER ==
[~2024-12-28 16:25] MED LIST: Iopamidol 300 61% 100 ML VIAL FS ONE
[2024-12-28] MEDS ORDERED: diphenhydrAMINE 50 MG/ML VIAL ONE (16:57)
[2024-12-28] MEDS ORDERED: Famotidine/PF 20 mg/2ml Vial ONE (16:58)
[2024-12-28 17:27] LABS: #Basophils 0.05 10x3/uL (0.0-0.2); #Eosinophils 0.21 10x3/uL (0.0-0.5); #Monocytes 0.53 10x3/uL (0.0-1.1); #Neutrophils 4.14 10x3/uL (1.5-8.4); %Basophils 0.7 % (0.0-2.0); %Eosinophils 3.1 % (0.0-6.0); %Lymphocytes 27.0 % (18.0-47.0); %Monocytes 7.8 % (0.0-10.0); %Neutrophils 61.1 % (40.0-75.0); Hematocrit 39.0 % (38.8-50.0); Hemoglobin 13.1 g/dL (13.5-17.5); Mean Corpuscular Hemoglobin 30.8 pg (27.0-33.0); Mean Corpuscular Volume 91.8 fL (81.2-95.1); Platelet Count 221 10x3/uL (150-450); Red Blood Cell (RBC) Count 4.25 10x6/uL (4.32-5.72); White Blood Cell (WBC) Count 6.78 10x3/uL (3.5-10.5)
[2024-12-28 18:00] LABS: ALT (SGPT) 19 U/L (Less than 45); AST (SGOT) 30 U/L (11-34); Albumin 4.1 g/dL (3.1-4.5); Alkaline Phosphatase 85 U/L (40-110); Anion Gap 11 mmol/L (10-20); BUN (Urea Nitrogen) 13 mg/dL (8.4-25.7); Bilirubin, Total 0.6 mg/dL (0.3-1.2); Calc. Creatinine Clearance 0 mL/min (70-130); Calcium 9.5 mg/dL (7.8-10.44); Carbon Dioxide 30 mmol/L (23-31); Chloride 102 mmol/L (98-107); Globulin 3.7 g/dL (2.4-3.5); Glucose 190 mg/dL (83-110); Potassium 3.9 mmol/L (3.5-5.1); Sodium 139 mmol/L (136-145)
== END 2024-12-28 19:23 | disposition home or self-care (01) ==
LOC: EEVIPCON 16:25 → CSHERS 16:25
DX: S16.1XXA Strain of muscle, fascia and tendon at neck level, initial encounter (principal); E03.9 Hypothyroidism, unspecified; E11.40 Type 2 diabetes mellitus with diabetic neuropathy, unspecified; I10 Essential (primary) hypertension; X50.9XXA Other and unspecified overexertion or strenuous movements or postures, initial encounter; Z95.5 Presence of coronary angioplasty implant and graft
CPT/HCPCS: 70491; 80053; 84439; 84443; 85025; 96374; 96375; J1200; J2919; Q9967